=== PATIENT | female | born 1995 | race Caucasian/White ===

== ENCOUNTER 2022-02-05 00:35 | Day surgery (SDC) | payer BC, SELFPAY ==
[2022-02-03 15:14] VITALS: BMI 30.2
--- NOTE | 2022-02-03 15:20 | PC.NURSE ---
Report to the Outpatient Waiting Room, entrance under the green pavilion located off [facility], at time 1100 on date 02/05/22. OR Time: 1300. Time changes happen often and if your time is changed the preop area will call you the afternoon before. - You and your visitor will be asked to self-screen and do not enter if you have any COVID symptoms. - Only one visitor and NO children visitors are allowed at this time. - The patient visitor is requested to leave or wait in car when not with patient due to restrictions. - A mask is required within the hospital. Patients may have clear liquids (water, carbonated beverages, clear teas, apple juice) until 3 hours prior to surgery with a maximum of 20 ounces. - No food from midnight until time of surgery Take the following medications with a SIP of water the morning of surgery: N/A Medications to discontinue per physician: N/A Date to take last dose: N/A Please no make-up, nail amharic, hairspray, perfume, deodorant, or body powder the day of surgery. No jewelry (including any body piercings) or valuables the day of surgery, leave them at home. Please take a shower or bath the night before, or the morning of, surgery with an antibacterial soap. Wear comfortable, loose fitting clothing. - Jewelry must be removed prior to entering the operating room. Rings and piercings that are not removed may be cut off. - The hospital will not accept responsibility for valuables. - Please leave all valuables, including medications, at home the day of surgery. If you are going home after surgery, a licensed tractor trailer driver must drive you home. - NO public transportation without another adult. - We recommend that an adult stay with you for 24 hours following discharge. - We also recommend that you do not drive, make important decision, drink alcoholic beverages, or take any drugs that were not prescribed by your health care provider for at least 24 hours after your discharge time. Follow any additional instructions given to you from your surgeon. If you or anyone in your household have experienced Covid symptoms in the past week, please notify your surgeon or the nurse liaison at the phone number below for possible testing. Telephone instructions given to PT - FERMIN CUEVAS and asked if any additional questions and then verbalized understanding. Patient advised to call surgeon office or pre surgery nurse liaison [phone] if any additional questions.
--- NOTE | 2022-02-04 16:41 | PM.IMHP ---
H&P: HPI History of Present Illness Date/Time: 02/04/22 16:41 Chief Complaint: Miscarriage Narrative: 26 y/o G1 at 9 weeks 4 days gestation by LMP 11/30/21, giving a due date of 09/06/22. Ultrasound exam on 01/21 showed a joshi IUP with cardiac motion, measuring 5 days behind dates. Follow up ultrasound exam on 02/03 showed a joshi IUP with CRL 1.9 cm with no cardiac motion. She has had some cramping, but no vaginal bleeding. She would like surgical management of her problem. Review of Systems Review of Systems: All systems reviewed & are unremarkable except as noted in HPI and below PMFSH Surgical History Surgical History History of repair of ACL Social History Social History Smoking status: Never smoker Alcohol intake: current Alcohol use details: 2/WEEK WHEN NOT Substance use: never Substance use type: does not use Living arrangements: with family Spiritual care concerns: No Meds Home Medications and Allergies Home Medications Medication Instructions Recorded Confirmed Type No Home Medications 02/03/22 02/03/22 History Allergies Allergy/AdvReac Type Severity Reaction Status Date / Time No Known Allergies Allergy Mild Unverified 02/03/22 15:13 Exam Const: Orientation/consciousness: patient oriented x3 Other: Well-developed, well-nourished female in no acute distress. Neck: Thyroid: thyroid normal Lymphatic: no lymphadenopathy noted (in neck, axilla or inguinal nodes) Resp: Effort & Inspection: normal respiratory effort Auscultation: clear to auscultation bilaterally Cardio: Rate: regular rate Rhythm: regular rhythm Heart sounds: S1 normal heart sound present and S2 normal heart sound present GI: Other: ABD: Soft, nontender, nondistended. No guarding or rebound tenderness. No hepatosplenomegaly. : General: Yes no CVA tenderness Other: External genitalia: normal female hair distribution, without lesion. Urethral meatus: no lesion, non prolapsed. Bladder: no mass, nontender Vagina: well-estrogenized, without lesion or discharge. No cystocele or rectocele. Cervix: no lesion or discharge. Uterus: enlarged, 8-10 weeks gestational size, anteverted, freely mobile, nontender Adnexa: no mass or tenderness. Anus/perineum: no lesions, nontender Back/Spine/Pelvis: Back: no CVA tenderness Skin: General skin exam: normal color and no rashes or lesions noted Neuro: General: patient oriented x3 Extrem: Other: Extremities: nontender with no edema Psych: Mental Status: mental status grossly normal Affect: normal affect Assessment and Plan Assessment and plan (1) Missed : Code(s): O02.1 - Missed Status: Acute Assessment and Plan: A: Missed SAB. P: Offered expectant management vs. dilation and suction curettage. She prefers the latter. Reviewed risks, benefits, alternatives in detail. She understands risks of surgery to include risks of anesthesia, risks of pain, infection, bleeding, blood products, thromboembolic phenomena and damage to adjacent structures such as bowel, bladder, ureters, blood vessels and nerves. She understands all these risks and elects to proceed with dilation and suction curettage.
--- NOTE | 2022-02-05 07:49 | WPDANESEPPF ---
Anes - Initial Pre Proc Eval Procedure: Operation Date: 02/05/22 13:00 Proposed Procedures p Suction Dilation and Curettage - Helio Solis MD Date/Time: 02/05/22 07:49 Surgeon: Helio Solis MD Pre Op Diagnosis: Missed AB Patient Data Age: 26 Gender: F Height: 1.52 m Weight: 70.31 kg Allergies Allergy/AdvReac Type Severity Reaction Status Date / Time No Known Allergies Allergy Mild Verified 02/05/22 11:15 Home Medications Medication Instructions Recorded Confirmed Type No Home Medications 02/03/22 02/03/22 History Patient hx anesthesia problems: none Family hx anesthesia problems: none Results Review: All pre-operative results and documents have been reviewed as part of the pre-operative evaluation. [facility] Surgical History Surgical History History of repair of ACL Social History Social History Smoking status: Never smoker Alcohol intake: current Alcohol use details: 2/WEEK WHEN NOT Substance use: never Substance use type: does not use Living arrangements: with family Spiritual care concerns: No Anes - Eval Final PreProcedure Day of Procedure 02/05/22 07:49 Patient weight: obese Heart: regular rate and rhythm Lungs: clear to auscultation Airway: Mallampati scale class II Neurological: alert and oriented Last oral intake: >/= 8 hours ASA classification: II Emergent: no Anesthetic plan: proceed Anesthesia type and monitoring: general GIVS and standard monitoring Results Review: All pre-operative results and documents have been reviewed as part of the pre-operative evaluation. Informed Consent: The patient's anesthetic plan and its attendant risks and benefits were discussed with the patient/family/POA. Questions were solicited and answers provided to the satisfaction of the patient/family/POA.
[2022-02-05 11:10] VITALS: BP 113/71; PULSE 80; RESP 16; TEMP 37.2; O2SAT 100; BMI 30.7
[2022-02-05] MEDS: ACETAMINOPHEN 500 MG TABLET 1000 MG PO (11:20)
[2022-02-05] MEDS: LACTATED RINGERS 1,000 ML 30 ML IV CONT (11:50)
--- NOTE | 2022-02-05 12:22 | WPDHPUPDATE1 ---
History and Physical Update Update Date/Time: 02/05/22 12:22 History and Physical has been reviewed, including an updated exam of the patient. There are NO changes in the patient's condition. Risks, benefits, and alternatives have been discussed and questions answered. Patient agrees to proceed with procedure.
[2022-02-05] MEDS: KETOROLAC 30 MG/ML VIAL (*BKC) IV PUSH (12:53)
[2022-02-05] MEDS: LIDOCAINE HCL 1% PF 30 ML VIAL 10 ML INFILTRATE (12:55)
--- NOTE | 2022-02-05 13:02 | P.OP_ITS ---
Procedure Note - Detailed Date of Procedure 02/05/22 Pre-op Diagnosis Missed SAB Post-op Diagnosis Same Procedure Performed Dilation and suction curettage Surgeon Helio Solis MD Anesthesia MAC and Local (1% lidocaine paracervical block) Findings POC noted Description of Procedure The patient was taken to the operating room where she was prepared and draped in the usual sterile fashion in the dorsal lithotomy position. The bladder was drained with a red rubber catheter. A sterile speculum was placed into the vagina. The anterior lip of the cervix was grasped with a single-tooth tenaculum. Ten mL of 1% lidocaine was administered in a paracervical block. The cervix was gently dilated using Hegar dilators until an 8mm dilator could be passed. The 8mm curved tip suction curette was advanced. Suction curettage was performed and products of conception were aspirated. Sharp curettage was then performed until a good uterine cry was noted. A final pass with the suction curette was made. The tenaculum was removed. Hemostasis was excellent. Sp onge, lap, needle and instrument counts were correct. The patient was taken to the recovery room in stable condition. I was present and scrubbed for the entire procedure. Estimated Blood Loss 50 Drains No Packing No Pathology Yes (Endometrial curettings) Complications None Condition Stable Disposition PACU
[2022-02-05 13:06] VITALS: BP 118/74; PULSE 86; RESP 16; O2SAT 100
[2022-02-05 13:36] VITALS: BP 105/73; PULSE 71; RESP 16; O2SAT 100
[2022-02-05] MEDS: oxyCODONE HCL (*CRX) 5 MG TAB IR PO (13:50)
[2022-02-05 14:06] VITALS: BP 112/73; PULSE 61; RESP 16
== END 2022-02-05 14:10 | disposition home or self-care (01) ==
PROVIDERS: Visit Provider Obstetrics & Gynecology
PROC: (CPT 59820; principal; 2022-02-05 13:00)
DX: O02.1 Missed abortion (principal); Z3A.09 9 weeks gestation of pregnancy
CPT/HCPCS: 59820; 36415; 85461; 88305; A9270; J1885; J2250; J2590; J2704; J3010; J7120

== ENCOUNTER 2022-12-05 14:33 | Outpatient (RCR) | payer OTHER, SELFPAY ==
[2022-12-05 15:36] VITALS: BP 113/65
== END 2023-03-04 11:21 | disposition home or self-care (01) ==
LOC: ANHOBOP 14:33
PROVIDERS: Visit Provider Obstetrics & Gynecology
DX: O36.8130 Decreased fetal movements, third trimester, not applicable or unspecified (principal); Z3A.32 32 weeks gestation of pregnancy
CPT/HCPCS: 59025

== ENCOUNTER 2023-01-19 23:09 | Inpatient (IN) | payer OTHER, SELFPAY ==
[2023-01-19 23:34] VITALS: BMI 37.2
--- NOTE | 2023-01-19 23:35 | LDADM ---
This patient, Cynthia Clayton, was admitted to Labor/Delivery/Recovery 105 on 01/19/23 at 23:09. Plans for labor, pain management and were discussed with patient. Patient/family oriented to hospital policies and general routines including ID bracelet, bed and alarms, visiting hours, pain management, procedures, bathroom and other care routines, personal items, smoking policy, room service/diet and guest tray routines, infant security routines, and visiting hours. Patient/Family are encouraged to report perceived risks to care and to ask questions if they do not understand what they are told or what they should do. See OBIX for further documentation.
[2023-01-19 23:57] VITALS: TEMP 36.8
[2023-01-19 23:57] LABS: Basophils Percent Auto 0.3 % (0.2-1.2); Eosinophils Absolute Auto 0.2 K/mm3 (0-0.3); Eosinophils Percent Auto 1.1 % (0-4.4); Hematocrit 37.6 % (37.0-47.0); Hemoglobin 13.1 g/dL (12.0-15.0); Immature Granulocyte Absolute 0.15 K/mm3 (0.00-0.031); Mean Corpuscular HGB Conc 34.8 g/dl (32-36); Mean Corpuscular Hemoglobin 32.5 pg (26-34); Mean Corpuscular Volume 93.3 fl (80-100); Mean Platelet Volume 12.7 fl (7.4-10.4); Monocytes Percent Auto 6.8 % (2.6-8.5); Neutrophils Absolute Auto 10.5 K/mm3 (1.3-6.7); Neutrophils Percent Auto 72.8 % (45.5-73.1); Platelet Count Result 178 k/mm3 (150-375); Red Blood Count 4.03 M/mm3 (4.2-5.4); Red Cell Distribution Width 13.1 % (11.5-14.5); White Blood Count 14.5 K/mm3 (4.5-10.0)
[2023-01-19 23:58] VITALS: BP 127/74; PULSE 91
[2023-01-20] VITALS (190 sets, daily range): BP systolic 88–171; BP diastolic 57–146; PULSE 56–182; TEMP 35.9–37.1; O2SAT 90–100
[2023-01-20] MEDS: DINOPROSTONE 10 MG VAG INSERT VAGINAL (00:14)
--- NOTE | 2023-01-20 08:56 | WPDOBADMIT ---
Obstetrics - Admit Note Admission Note: record reviewed. Additions to the history and/or subsequent changes in the physical findings follow. 27 y/o at 39 3/7 weeks gestation here for scheduled induction of labor. EFW on US one week ago was 8#7oz, with FRANKLIN 30 cm. GBS neg. AVSS NST reactive TOCO: contractions irregularly ABD soft, nontender, gravid, vertex EXT nontender A: IUP at term with EFW 9#, here desiring induction of labor. P: Cervidil in place, will withdraw at 12 hours. Anticipate .
[2023-01-20 09:58] LABS: Rapid Plasma Reagin Non-Reactive (NonReactive)
--- NOTE | 2023-01-20 12:12 | PM.OBPNLAB ---
Pain Control Date/time seen: 01/20/23 12:12 Comments: Feeling some contractions. Pelvic Exam Dilation (cm): 2 Effacement (%): 50 station: -2 Comments: Cervidil removed. AROM with clear fluid. Contractions Contraction pattern: Irregular Status status: Category l Assessment and Plan Comments: Cervidil removed. Begin oxytocin.
[2023-01-20] MEDS: LACTATED RINGERS 1,000 ML 125 ML IV CONT (12:40)
[2023-01-20] MEDS: OXYTOCIN 30 UNITS/NS 500 ML 30 UNITS/500 ML BAG 6 UNITS IV CONT (12:41)
[2023-01-20] MEDS: LACTATED RINGERS 1,000 ML 999 ML IV CONT ×2 (14:42→20:13)
--- NOTE | 2023-01-20 17:27 | PM.OBPNLAB ---
Pain Control Date/time seen: 01/20/23 17:27 Comments: Comfortable with epidural. Pelvic Exam Dilation (cm): 4 Effacement (%): 80 station: -2 Comments: IUPC placed Contractions Contraction frequency: 3 Contraction pattern: Irregular Status status: Category l Assessment and Plan Comments: Continue oxytocin.
[2023-01-20] MEDS: CALCIUM CARBONATE (TUMS) 500 MG (200 MG ELEMENTAL) (19:13)
[2023-01-20] MEDS: ONDANSETRON INJ 4 MG/2 ML VIAL IV PUSH (23:19)
[2023-01-21] VITALS (261 sets, daily range): BP systolic 74–194; BP diastolic 42–169; PULSE 83–184; RESP 15–18; TEMP 36.6–37.2; O2SAT 82–100
[2023-01-21] MEDS: AMPICILLIN 2 GM/NS 100 ML 2 GM/100 ML BAG IVPB (06:01)
[2023-01-21] MEDS: LACTATED RINGERS 1,000 ML 125 ML IV CONT ×2 (08:16→13:54)
--- NOTE | 2023-01-21 08:56 | PM.OBPNLAB ---
Pain Control Date/time seen: 01/21/23 08:56 Comments: Comfortable with epidural. Pelvic Exam Dilation (cm): 8 Effacement (%): 100 station: 0 Contractions Contraction frequency: 4 Contraction pattern: Irregular Status status: Category l Assessment and Plan Comments: Continue augmentation of labor.
[2023-01-21] MEDS: AMPICILLIN 1 GM/NS 50 ML 1 GM/50 ML BAG IVPB ×2 (10:26→13:53)
--- NOTE | 2023-01-21 12:54 | PM.OBPNLAB ---
Pain Control Date/time seen: 01/21/23 12:54 Comments: Still comfortable with epidural. Pelvic Exam Dilation (cm): 8 Effacement (%): 100 station: 0 Contractions Contraction frequency: 3 Contraction pattern: Regular Status status: Category l Assessment and Plan Comments: A: Arrest of dilation despite adequate contractions. P: Offered primary . She understands risks of surgery to include risks of anesthesia, risks of pain, infection, bleeding, blood products, thromboembolic phenomena and damage to adjacent structures such as bowel, bladder, ureters, blood vessels and nerves. She understands all these risks and elects to proceed with surgery.
[2023-01-21] MEDS: AZITHROMYCIN 500 MG/NS 250 ML 500 MG/250 ML BAG 250 MG IVPB (13:43)
[2023-01-21] MEDS: ceFAZolin 2 GM/D5W 50 ML 2 GM/50 ML BAG IVPB (14:46)
--- NOTE | 2023-01-21 15:39 | P.PCNOB_ITS ---
OB - Delivery Note Procedure Delivery date: 01/21/23 Procedure: Procedures Operation Date: 01/21/23 15:00 <No data on this case meets the specified criteria> Primary low transverse delivery Intrapartal Events: Arrest of Dilation Induction method: Per Pitocin Protocol Delivery augmentation: Rupture of Membranes and Pitocin Delivery monitor: External FHT, External Uterine and Internal Uterine Route of delivery: Specimen: Yes (cord blood) Quantitative Blood Loss (ml): 1,230 Anesthesia type: Epidural Disposition: PACU Complications: None Narrative: The patient was taken to the operating room where she was prepared and draped in the usual sterile fashion in dorsal supine position with a leftward tilt. She received cefazolin and azithromycin preoperatively. Epidural anesthesia was found to be adequate. A Pfannenstiel skin incision was made and carried through to the underlying layer of the fascia. The fascia was incised in the midline and the incision was extended laterally. The fascia was dissected free of the underlying rectus muscles. The rectus muscles were in the midline. The peritoneum was identified, tented up and entered sharply. The peritoneal incision was extended superiorly and inferiorly with good visualization of the bladder. The bladder blade was placed. The vesicouterine peritoneum was identified, tented up and entered sharply. The incision was extended laterally and the bladder flap was developed. The bladder blade was replaced. The uterus was then incised sharply in a transverse fashion along the lower uterine segment. The incision was extended laterally. The infant's head was delivered atraumatically to the sterile field, followed by the body. The nose and mouth were bulb suctioned. After a delay, the cord was clamped and cut. The infant was handed off the field. Cord blood was collected. The placenta was removed manually and was passed off the field. The uterus was exteriorized and cleared of all clots and debris. The uterine incision was reapproximated using 0 Monocryl in a running, locked fashion. A second, imbricating layer of the same suture was run. Excellent hemostasis resulted as did excellent reapproximation of the normal anatomy. The uterus was returned the abdomen. The pelvis was irrigated copiously with warmed normal saline. Rigorous hemostasis was assured. The fascial layer was reapproximated using 0 Vicryl in a running fashion. The skin was closed with a running, subcuticular stitch of 4 0 Vicryl. Dermaflex was applied externally. Sponge, lap, needle and instrument counts were correct. The patient was taken to the recovery room in stable condition. The infant went to the nursery in stable condition. I was present and scrubbed the entire procedure. [employer] Baby Date of : 01/21/23 Time of : 15:05 Weeks of gestation at delivery: 39 Infant gender: Male Weight (pounds): 8 Weight (ounces): 6 presentation: vertex Placenta delivery description: Manual Removal and Normal Configuration Cord Vessel Description: 3 Vessels and Delayed Cord Clamping score one minute: 9 score five minutes: 9
[2023-01-21] MEDS: OXYTOCIN 30 UNITS/NS 500 ML 30 UNITS/500 ML BAG 125 UNITS IV CONT (17:00)
--- NOTE | 2023-01-21 18:25 | OBPPTRN ---
Patient transferred to post room #290 via stretcher. Support person present. Oriented to unit, room, information board, rooming in, admission packet and security measures. Patient verbalizes understanding.
[2023-01-21] MEDS: DEXTROSE 5%/0.45% SOD CHL 1,000 ML 125 ML IV CONT (21:51)
[2023-01-22 04:10] VITALS: BP 121/68; PULSE 101; RESP 16; TEMP 36.5; O2SAT 98
[2023-01-22] MEDS: KETOROLAC 30 MG/ML VIAL (*BKC) IV PUSH (05:22)
[2023-01-22 05:29] LABS: Hematocrit 25.8 % (37.0-47.0); Hemoglobin 8.6 g/dL (12.0-15.0); Mean Corpuscular HGB Conc 33.3 g/dl (32-36); Mean Corpuscular Hemoglobin 31.9 pg (26-34); Mean Corpuscular Volume 95.6 fl (80-100); Platelet Count Result 132 k/mm3 (150-375); Red Cell Distribution Width 13.4 % (11.5-14.5)
[2023-01-22 05:55] LABS: Band Neutrophils Percent 5 % (0-6); Eosinophils Absolute Manual 0.21 K/mm3 (0.02-0.5); Eosinophils Percent Manual 1 % (0-4); Lymphocytes Absolute Manual 1.68 K/mm3 (1.1-4.5); Monocytes Absolute Manual 0.42 K/mm3 (0.1-0.90); Monocytes Percent Manual 2 % (3-9); Neutrophils Absolute Manual 18.69 K/mm3 (1.7-7.2); Neutrophils Percent Manual 84 % (46-73); Total Cells Counted 100
[2023-01-22 05:56] LABS: Acanthocytes 1+ (NORMAL); Anisocytosis 1+ (NORMAL); Schistocytes None Seen (NORMAL)
[2023-01-22 09:30] VITALS: BP 107/65; PULSE 93; RESP 18; TEMP 36.6; O2SAT 98
[2023-01-22] MEDS: MULTIVIT/MIN/PREN/FOL AC/IRON TABLET 1 TAB PO (09:37)
[2023-01-22] MEDS: SIMETHICONE 80 MG TAB.CHEW PO ×2 (09:37→17:40)
[2023-01-22] MEDS: POLYSACCHARIDE IRON COMPLEX 150 MG CAPSULE PO ×2 (09:37→17:40)
[2023-01-22] MEDS: DOCUSATE SODIUM 100 MG CAPSULE PO ×2 (09:37→17:40)
--- NOTE | 2023-01-22 10:18 | WPDANLDPN2 ---
Anes-Prog Note L&D Date/Time: 01/22/23 10:18 Comfortable throughout: section Neuraxial method: epidural Epidural/Spinal procedure site: clean & non-tender Neuro status: Neuro function grossly intact. Cardiovascular status: normal Respiratory status: normal Airway patency: baseline Mental status: baseline Post-Op hydration status: normal Vital Signs: Last Vital Signs Temp 36.5 C 01/22/23 04:10 Pulse 101 H 01/22/23 04:10 Resp 16 01/22/23 04:10 BP 121/68 01/22/23 04:10 Pulse Ox 98 01/22/23 04:10 O2 Del Method Room Air 01/21/23 23:10 Pain score (VAS): 3/10 I/O: Intake & Output 01/21/23 01/22/23 01/22/23 23:59 07:59 15:59 Intake Total 100 1700 Output Total 1050 1700 Balance -950 0 Post-procedural complaints: none Patient feedback: Patient satisfied with anesthetic care.
--- NOTE | 2023-01-22 10:19 | WPDANLDNPN2 ---
Anes-Prog Note L&D-Neuraxial Date/Time: 01/22/23 10:19 Neuraxial medications: epidural PF morphine Opiod-related complaints: none Patient feedback: Patient satisfied with post-operative pain management.
[2023-01-22 12:36] VITALS: BP 112/69; PULSE 90; RESP 16; TEMP 36.9; O2SAT 97
[2023-01-22] MEDS: HYDROcodone/acetaminophen (*CRX) 5-325 MG TABLET 1 TAB PO ×3 (13:36→20:50)
[2023-01-22] MEDS: IBUPROFEN 600 MG TABLET PO (13:37)
--- NOTE | 2023-01-22 13:53 | PC.NURSE ---
1030 Introductions were made, then consulted with patient to assess needs related to . Mother led the conversation with her?plans to feed?her and the?experience so far. Mother works well with her with encouragement and education. Encouraged understanding of the benefits of skin to skin (demonstrating unwrapping and placing upright on her chest), stimulating with massage touch, changing positions to encourage wakefulness, how to watch for early feeding cues, responsive feeding, feeding on demand (aiming for 8-12 times in 24 hours, about every 2-3 hours), milk production, building/maintaining a milk supply, duration of feeding, signs of adequate intake/output and how to record on the feeding sheet. Reviewed positioning and ear, shoulder, hip alignment, supporting the breast to facilitate a deep latch, asymmetrical latch (off-center), leading with the chin with a big, open, wide gape and body close to mother. Infant latched optimally to both breast in [football/cross cradle/laid-back] position. Education given to mother of how to visualize suck/swallow ratios and listen for drinking at the breasts. Infant was able to maintain latch without discomfort to mother. Nipple care reviewed with optimal latch and good positioning. Reminding mother of comfort measures of healing with a warm and wet washcloth to rinse breast, then leave open to air-dry as needed. Reviewed good handwashing when or touching the breast/nipples to prevent infection. Resources used to facilitate learning were used with the mom and baby guide. Mother voiced understanding of skin to skin, stimulating with massage touch, responsive feedings, hand expressed colostrum, talking to infant to encourage if it has been 2 -2.5 hours since the start of the last , to call if does not latch, or if there is discomfort with . Resources provided for inpatient/outpatient with business card, feeding sheet and the mom/baby guide. Parents voiced understanding of information, demonstrated learning and will call if there is a request for assistance. Reported to primary RN.
--- NOTE | 2023-01-22 17:02 | PC.NURSE ---
1600 Mother witnessed feeding baby and she is able to independently latch with appropriate positioning/alignment. She denies any nipple discomfort and is responsively . Infant is currently meeting outcomes for weight, output, jaundice and feeding frequencies of 8-12 times in 24 hours. Mother declines any additional assistance/education at this time. Mother is encouraged to call for assistance if her infant doesn?t latch or there is discomfort with latching. Mother voiced understanding of information shared and the mom reminded of the mom/baby guide for an additional resource. Reported to the primary RN.
[2023-01-22 18:46] VITALS: BP 121/84; PULSE 85; RESP 18; TEMP 36.8; O2SAT 99
[2023-01-23] MEDS: HYDROcodone/acetaminophen (*CRX) 5-325 MG TABLET 1 TAB PO ×3 (00:45→14:53)
[2023-01-23] MEDS: IBUPROFEN 600 MG TABLET PO ×4 (05:08→23:58)
[2023-01-23 08:30] VITALS: BP 125/77; PULSE 85; RESP 18; TEMP 36.7; O2SAT 98
[2023-01-23] MEDS: SIMETHICONE 80 MG TAB.CHEW PO (10:53)
[2023-01-23] MEDS: POLYSACCHARIDE IRON COMPLEX 150 MG CAPSULE PO ×2 (10:53→17:50)
[2023-01-23] MEDS: DOCUSATE SODIUM 100 MG CAPSULE PO ×2 (10:54→17:50)
[2023-01-23] MEDS: MULTIVIT/MIN/PREN/FOL AC/IRON TABLET 1 TAB PO (10:54)
--- NOTE | 2023-01-23 12:55 | PM.OBPNVD ---
OB - PN: Subj Subjective Date/time seen: 01/22/23 190 Narrative: Pain OK. Tolerating diet. OB - PN: Obj Data Labs 01/22/23 04:21 OB - PN A/P Plan Comments: A: POD#1, doing well. P: Would like circumcision for son -- reviewed. Routine care. Exam Narrative: AVSS I/O OK ABD soft, nontender, fundus firm. Incision c/d/i. EXT nontender
--- NOTE | 2023-01-23 12:56 | PM.OBPNVD ---
OB - PN: Subj Subjective Date/time seen: 01/23/23 12:56 Narrative: Pain OK. Tolerating diet. OB - PN: Obj Data Labs 01/22/23 04:21 OB - PN A/P Plan Comments: A: POD#2, doing well. P: Routine care. Plan home tomorrow. Exam Narrative: AVSS I/O OK ABD soft, nontender, fundus firm. Incision c/d/i. EXT nontender
--- NOTE | 2023-01-23 13:00 | PM.OBDSVD ---
DS: Admitting Diagnosis Discharge Date 01/24/23 Admitting Diagnosis IUP at 39 4/7 weeks DS: Discharge Diagnosis Discharge Diagnosis (1) Term delivered: Code(s): O80 - Encounter for full-term uncomplicated delivery Status: Acute OB - DS: Summary OB Procedures : None OB Procedures Intrapartum: OB Procedures: : None Peripartum Data Procedures: Procedures Operation Date: 01/21/23 15:00 Actual Procedure Side Surgeon p Section Not Applicable Helio Solis MD Time Spent with Patient Time attestation: Total time spent providing and/or coordinating discharge services: Discharge Plan Discharge Attending physician on discharge: Helio Solis Discharging Clinician: Helio Solis Patient Disposition: Home, Self-Care Activity: may shower, may drive after 2 weeks and pelvic rest Diet: regular Wound Care Instructions: incision open to air Discharge Instructions: Call or return if temperature above 100.4? F, increased abdominal pain, increased vaginal bleeding or any new problems. Stand Alone Forms: General Discharge Information Follow-up/Referrals: Helio Solis MD [Physician] - 4 Weeks Discharge Medications: New ibuprofen 600 mg tablet 600 mg PO Q6H PRN (Reason: cramps) Qty: 30 0RF ferrous sulfate 325 mg (65 mg iron) tablet 325 mg PO DAILY Qty: 30 0RF hydrocodone-acetaminophen 5-325 mg tablet 1 - 2 tablet PO Q6H PRN (Reason: pain) Qty: 30 0RF Continued #2 Tablet 1 tablet PO DAILY Date of admission: 01/19/23 23:09 Primary Care Provider: Raheem Benavides Admitting Provider: Helio Solis Attending physician on admission: Helio Solis Condition: Stable
[2023-01-23 20:45] VITALS: BP 107/63; PULSE 88; RESP 18; TEMP 36.5
--- NOTE | 2023-01-24 05:41 | PC.NURSE ---
Patient viewed the discharge video Mother & Baby Care, The First Two Weeks . Patient was given the opportunity and encouraged to ask questions. Patient verbalized understanding of information shared and has been given the mother/baby guide for home reference.
[2023-01-24 07:45] VITALS: BP 106/71; PULSE 87; RESP 16; TEMP 36.8; O2SAT 100
[2023-01-24] MEDS: MULTIVIT/MIN/PREN/FOL AC/IRON TABLET 1 TAB PO (08:17)
[2023-01-24] MEDS: POLYSACCHARIDE IRON COMPLEX 150 MG CAPSULE PO (08:17)
[2023-01-24] MEDS: DOCUSATE SODIUM 100 MG CAPSULE PO (08:17)
[2023-01-24] MEDS: IBUPROFEN 600 MG TABLET PO (08:17)
[2023-01-24] MEDS: HYDROcodone/acetaminophen (*CRX) 5-325 MG TABLET 1 TAB PO (08:18)
[2023-01-24] MEDS: MEASLES,MUMPS,RUBELLA VACCINE 0.5 ML VIAL SUB-Q (08:18)
--- NOTE | 2023-01-24 10:23 | PM.OBPNVD ---
OB - PN: Subj Subjective Date/time seen: 01/24/23 10:23 Narrative: Pain OK. Tolerating diet. Would like to go home. OB - PN: Obj Data Labs 01/22/23 04:21 OB - PN A/P Plan day: 3 Comments: A: POD#3, doing well. P: Home to f/u 4 weeks. Exam Narrative: AVSS ABD soft, nontender, fundus firm. Incision c/d/i. EXT nontender
[2023-01-26 12:45] VITALS: BP 124/72; PULSE 78; RESP 14; TEMP 36.8
== END 2023-01-24 13:08 | disposition home or self-care (01) | DRG 788 ==
LOC: ANHLDR 01-21 15:09 → ANHOB2 01-21 18:29
PROVIDERS: Admitting Provider Obstetrics & Gynecology; PCP Family Medicine; Visit Provider Obstetrics & Gynecology
PROC: 10D00Z1 Extraction of Products of Conception, Low, Open Approach (ICD-10-PCS; CPT 59514; principal; 2023-01-21 15:00)
DX: O62.0 Primary inadequate contractions (principal); O42.92 Full-term premature rupture of membranes, unspecified as to length of time between rupture and onset of labor; Z3A.39 39 weeks gestation of pregnancy; Z37.0 Single live birth
CPT/HCPCS: 36415; 85025; 86592; 86850; 86900; 86901; 90710; A9270; J0290; J0456; J0690; J1885; J2274; J2405; J2590; J2795; J3010; J7120

== ENCOUNTER 2024-07-18 11:24 | Observation (INO) | payer OTHER, SELFPAY ==
--- NOTE | 2024-07-18 11:24 | OBADM ---
This patient, Cynthia Aldana, admitted to the OB room OB Post 117 for observation. Patient/family oriented to hospital policies and general routines including ID bracelet, bed and alarms, visiting hours, pain management, procedures, bathroom and other care routines, personal items, smoking policy, room service/diet, and visiting hours. Patient/Family are encouraged to report perceived risks to care and to ask questions if they do not understand what they are told or what they should do.
[2024-07-18 11:30] VITALS: BMI 33.3
[2024-07-18 12:01] VITALS: BP 120/66; PULSE 104
[2024-07-18 12:10] LABS: Add Urine Microscopic? YES; Appearance Urine Clear (Clear); Bacteria Urine None Seen /hpf; Bilirubin Urine Negative (Negative); Blood Urine Negative (Negative); Color Urine Yellow (Yellow); Glucose Urine UA Negative (Negative); Ketones Urine Negative (Negative); Leukocyte Esterase Ur Trace LEU/UL (Negative); Nitrate Urine Negative (Negative); Non Pathogenic Casts 0-2; Protein Urine Negative (Negative); RBC Urine 0-2 /hpf (0-2); Specific Grav Ur 1.008 (1.001-1.035); Squamous Epithelial Cell Urine Moderate /hpf (Few); Urobilinogen Urine 0.2 mg/dL (<2.0); WBC Urine 0-5 /hpf (0-3); pH Urine 6.5 (5.0-9.0)
[2024-07-18] MEDS: TERBUTALINE SULFATE 1 MG/ML VIAL 0.25 MG SUB-Q ×2 (12:55→15:09)
[2024-07-18 15:21] LABS: Fetal Fibronectin Negative
--- NOTE | 2024-07-21 08:51 | PM.OBTRLD ---
OB - Triage/Final Diagnosis Visit Information Comments/Additional reasons for admission: I have assessed the risk for this patient, Cynthia Aldana, and determined that she would benefit from observation care. Evaluation Laboratory results: Laboratory Tests 07/18/24 07/18/24 11:48 14:39 Urine Color Yellow Urine Appearance Clear Urine pH 6.5 Ur Specific [place] 1.008 Urine Protein Negative Urine Glucose (UA) Negative Urine Ketones Negative Ur Blood (Man) Negative Urine Nitrate Negative Urine Bilirubin Negative Urine Urobilinogen 0.2 Ur Leukocyte Esterase Trace H Urine RBC 0-2 Urine WBC 0-5 Ur Squamous Epith Cells Moderate Urine Bacteria None seen Urine Casts 0-2 Fibronectin Negative Final Diagnosis (1) contractions: Code(s): O47.00 - False labor before 37 completed weeks of gestation, unspecified trimester Status: Acute
== END 2024-07-18 16:35 | disposition home or self-care (01) ==
PROVIDERS: Admitting Provider Obstetrics & Gynecology; PCP Family Medicine; Visit Provider Obstetrics & Gynecology
DX: O47.03 False labor before 37 completed weeks of gestation, third trimester (principal); Z3A.31 31 weeks gestation of pregnancy
CPT/HCPCS: 81001; 82731; 87086; 96372; G0378; G0379; J3105

== ENCOUNTER 2024-09-13 09:54 | Outpatient (CLI) | payer OTHER, SELFPAY ==
[2024-09-13 10:11] LABS: Hematocrit 37.8 % (37.0-47.0); Hemoglobin 12.5 g/dL (12.0-15.0); Mean Corpuscular HGB Conc 33.1 g/dl (32-36); Mean Corpuscular Volume 96.7 fl (80-100); Mean Platelet Volume 12.3 fl (7.4-10.4); Platelet Count Result 163 k/mm3 (150-375); Red Blood Count 3.91 M/mm3 (4.2-5.4); Red Cell Distribution Width 13.7 % (11.5-14.5); White Blood Count 12.6 K/mm3 (4.5-10.0)
[2024-09-13 15:18] LABS: Syphilis IgG/IgM Antibody Negative (Negative)
== END 2024-09-13 09:55 | disposition home or self-care (01) ==
LOC: ANHLAB 09:56
PROVIDERS: PCP Family Medicine; Visit Provider Obstetrics & Gynecology
DX: Z34.93 Encounter for supervision of normal pregnancy, unspecified, third trimester (principal); Z3A.00 Weeks of gestation of pregnancy not specified
CPT/HCPCS: 36415; 85027; 86593; 86850; 86900; 86901

== ENCOUNTER 2024-09-14 09:59 | Inpatient (IN) | payer OTHER, SELFPAY ==
[2024-09-14] VITALS (45 sets, daily range): BP systolic 93–141; BP diastolic 50–96; PULSE 68–102; RESP 12–18; TEMP 36.5–36.8; O2SAT 97–100; BMI 34.3
[2024-09-14] MEDS: ACETAMINOPHEN 500 MG TABLET 1000 MG PO (10:54)
[2024-09-14] MEDS: LACTATED RINGERS 1,000 ML 125 ML IV CONT ×2 (10:58→11:59)
[2024-09-14 11:37] LABS: HIV 1/2 Ab P24 Ag Result Negative (Negative)
--- NOTE | 2024-09-14 11:45 | PM.IMHP ---
H&P: HPI History of Present Illness Date/Time: 09/14/24 11:45 Chief Complaint: Here for repeat c section Narrative: 29 y/o at 39 4/7 weeks with prior , here for repeat. Review of Systems Review of Systems: All systems reviewed & are unremarkable except as noted in HPI and below PMFSH Past Medical History Medical History Anxiety Depression Surgical History Surgical History History of delivery History of repair of ACL Family History Family History Other Patient denies significant medical history Social History Social History Smoking status: Never smoker Alcohol intake: current Alcohol use details: 2/WEEK WHEN NOT Substance use: never Substance use type: does not use Lack of Transportation: No Lack of Food: Never True Current Housing: I Have Housing Concerned About Future Housing: No Difficulty Paying Gas/Electric Bills: No Difficulty Paying for Meds: No Currently Unemployed: No Education: Bachelor's Degree Difficulty w/ Childcare or Family Care: No Living arrangements: with family Spiritual care concerns: No Meds Home Medications and Allergies Home Medications ?Medication ?Instructions ?Recorded ?Confirmed ?Type prenat.vits,rome,eqt-[id number] 1 tablet PO DAILY 12/26/22 08/19/24 History sertraline 100 mg tablet 100 mg PO Q24H 08/19/24 08/19/24 History Allergies Allergy/AdvReac Type Severity Reaction Status Date / Time diphenhydramine (From Allergy Hives Verified 08/19/24 13:01 Benadryl) Exam Const: Orientation/consciousness: patient oriented x3 Other: Well-developed, well-nourished female in no acute distress. Neck: Thyroid: thyroid normal Lymphatic: no lymphadenopathy noted (in neck, axilla or inguinal nodes) Resp: Effort & Inspection: normal respiratory effort Auscultation: clear to auscultation bilaterally Cardio: Rate: regular rate Rhythm: regular rhythm Heart sounds: S1 normal heart sound present and S2 normal heart sound present GI: Other: ABD: Soft, nontender, nondistended, gravid. FHR auscultated. FH 37 cm. No guarding or rebound tenderness. No hepatosplenomegaly. : General: Yes no CVA tenderness Other: Cervix closed, thick Back/Spine/Pelvis: Back: no CVA tenderness Skin: General skin exam: normal color and no rashes or lesions noted Neuro: General: patient oriented x3 Extrem: Other: Extremities: nontender with no edema Psych: Mental Status: mental status grossly normal Affect: normal affect Assessment and Plan Assessment and plan (1) Term : Code(s): Z34.90 - Encounter for supervision of normal , unspecified, unspecified trimester Status: Acute Assessment and Plan: A: IUP at 39 4/7 weeks with prior , desiring repeat. P: Offered repeat . She understands risks of surgery to include risks of anesthesia, risks of pain, infection, bleeding, blood products, thromboembolic phenomena and damage to adjacent structures such as bowel, bladder, ureters, blood vessels and nerves. She understands all these risks and elects to proceed with surgery. (2) History of delivery, currently : Code(s): O34.219 - Maternal care for unspecified type scar from previous delivery Status: Acute
--- NOTE | 2024-09-14 11:47 | P.PNAN_ITS ---
Anes - Initial Pre Proc Eval Procedure: Operation Date: 09/14/24 12:00 Proposed Procedures p Section - Helio Solis MD Date/Time: 09/14/24 11:47 Surgeon: Helio Solis MD Pre Op Diagnosis: C/S Patient Data Age: 29 Gender: F Height: 1.55 m Weight: 82.5 kg Allergies Allergy/AdvReac Type Severity Reaction Status Date / Time diphenhydramine (From Allergy Hives Verified 08/19/24 13:01 Benadryl) Home Medications ?Medication ?Instructions ?Recorded ?Confirmed ?Type prenat.vits,rome,qgj-kxcp-qpnrd 1 tablet PO DAILY 12/26/22 08/19/24 History sertraline 100 mg tablet 100 mg PO Q24H 08/19/24 08/19/24 History Laboratory Tests 09/14/24 10:40 HIV 1&2 Ab/P24 Ag 4thGn Negative (Negative) Patient hx anesthesia problems: none Family hx anesthesia problems: none Results Review: All pre-operative results and documents have been reviewed as part of the pre- operative evaluation. [facility] Past Medical History Medical History Anxiety Depression Surgical History Surgical History History of delivery History of repair of ACL Family History Family History Other Patient denies significant medical history Social History Social History Smoking status: Never smoker Alcohol intake: current Alcohol use details: 2/WEEK WHEN NOT Substance use: never Substance use type: does not use Lack of Transportation: No Lack of Food: Never True Current Housing: I Have Housing Concerned About Future Housing: No Difficulty Paying Gas/Electric Bills: No Difficulty Paying for Meds: No Currently Unemployed: No Education: Bachelor's Degree Difficulty w/ Childcare or Family Care: No Living arrangements: with family Spiritual care concerns: No Anes - Eval Final PreProcedure Day of Procedure 09/14/24 11:47 Patient weight: obese Heart: regular rate and rhythm Lungs: clear to auscultation and normal air movement Airway: Mallampati scale class II Neurological: alert and oriented Last oral intake: >/= 8 hours ASA classification: II Emergent: no Anesthetic plan: proceed Anesthesia type and monitoring: regional spinal and standard monitoring Results Review: All pre-operative results and documents have been reviewed as part of the pre- operative evaluation. Informed Consent: The patient's anesthetic plan and its attendant risks and benefits were discussed with the patient/family/POA. Questions were solicited and answers provided to the satisfaction of the patient/family/POA.
[2024-09-14] MEDS: FAMOTIDINE 20 MG/2 ML VIAL IV PUSH (12:00)
[2024-09-14] MEDS: ONDANSETRON INJ 4 MG/2 ML VIAL IV PUSH (12:00)
--- NOTE | 2024-09-14 12:01 | WPDHPUPDATE1 ---
History and Physical Update Update Date/Time: 09/14/24 12:01 History and Physical has been reviewed, including an updated exam of the patient. There are NO changes in the patient's condition. Risks, benefits, and alternatives have been discussed and questions answered. Patient agrees to proceed with procedure.
[2024-09-14] MEDS: ceFAZolin 2 GM/D5W 50 ML 2 GM/50 ML BAG IVPB (12:08)
--- NOTE | 2024-09-14 12:56 | W.PM.OBCSD ---
OB - Delivery Note Procedure Delivery date: 09/14/24 Pre-op diagnosis: Previous Delivery Post-op Diagnosis: Same Induction method: None Delivery monitor: External FHT and External Uterine Procedure Performed: Repeat Surgeon: Helio Solis MD Anesthesia type: Spinal Description of Procedure/Findings: Findings: Normal-appearing uterus, tubes and ovaries. Techniques: The patient was taken to the operating room where she was prepared and draped in the usual sterile fashion in dorsal supine position with a leftward tilt. She received cefazolin preoperatively. Spinal anesthesia was found to be adequate. A Pfannenstiel skin incision was made along the previous scar line and was carried through to the underlying layer of the fascia. The fascia was incised in the midline and the incision was extended laterally. The fascia was dissected free of the underlying rectus muscles. The rectus muscles were in the midline. The peritoneum was identified, tented up and entered sharply. The peritoneal incision was extended superiorly and inferiorly with good visualization of the bladder. The bladder blade was placed. The vesicouterine peritoneum was identified, tented up and entered sharply. The incision was extended laterally and the bladder flap was developed. The bladder blade was replaced. The uterus was then incised sharply in a transverse fashion along the lower uterine segment. The incision was extended laterally. The 's head was delivered atraumatically to the sterile field, followed by the body. The nose and mouth were bulb suctioned. After a delay, the cord was clamped and cut. The was handed off the field. Cord blood was collected. The placenta was removed manually and was passed off the field. The uterus was exteriorized and cleared of all clots and debris. The uterine incision was reapproximated using 0 Monocryl in a running, locked fashion. Excellent hemostasis resulted as did excellent reapproximation of the normal anatomy. The uterus was returned the abdomen. The pelvis was irrigated copiously with warmed normal saline. Rigorous hemostasis was assured. The fascial layer was reapproximated using 0 Vicryl in a running fashion. The skin was closed with a running, subcuticular stitch of 4 0 Vicryl. Dermaflex was applied externally. Sponge, lap, needle and instrument counts were correct. The patient was taken to the recovery room in stable condition. The infant went to the nursery in stable condition. I was present and scrubbed the entire procedure. Specimen: Yes (cord blood) Estimated Blood Loss: 470 Drains: Yes (dinero) Packing: No Pathology: Yes (cord blood) Complications: None Condition: Stable Disposition: PACU [place] Baby Date of : 09/14/24 Time of : 12:33 Gestational Age by Date: 39 gender: Female Weight (pounds): 8 Weight (ounces): 3 presentation: vertex Placenta delivery description: Manual Removal and Normal Configuration Cord Vessel Description: 3 Vessels and Delayed Cord Clamping score one minute: 8 score five minutes: 8
--- NOTE | 2024-09-14 12:59 | P.DS_ITS ---
DS: Admitting Diagnosis Discharge Date 09/15/24 Admitting Diagnosis IUP at 39 4/7 weeks Prior , desires repeat DS: Discharge Diagnosis Discharge Diagnosis (1) delivery delivered: Code(s): O82 - Encounter for delivery without indication Status: Acute OB - DS: Summary OB Procedures : None OB Procedures Intrapartum: OB Procedures: : None Peripartum Data Infant Delivery Method: Section Procedures: Procedures Operation Date: 09/14/24 12:00 <No data on this case meets the specified criteria> Time Spent with Patient Time attestation: Total time spent providing and/or coordinating discharge services: DS: Data Data Completed and Pending Labs on day of discharge: Labs from last 24 hours 09/14/24 10:40 HIV 1&2 Ab/P24 Ag 4thGn Negative Discharge Plan Discharge Attending physician on discharge: Helio Solis Discharging Clinician: Helio Solis Patient Disposition: Home Activity: may shower, may drive after 2 weeks and pelvic rest Diet: regular Wound Care Instructions: incision open to air Discharge Instructions: Call or return if temperature above 100.4? F, increased abdominal pain, increased vaginal bleeding or any new problems. Patient Language: Macedonian Stand Alone Forms: General Discharge Information Follow-up/Referrals: Helio Solis MD [Physician] - 4 Weeks Discharge Medications: New ibuprofen 600 mg tablet 600 mg PO Q6H PRN (Reason: cramps) Qty: 30 0RF hydrocodone-acetaminophen 5-325 mg tablet 1 - 2 tablet PO Q6H PRN (Reason: pain) Qty: 30 0RF Continued sertraline 100 mg tablet 100 mg PO Q24H prenat.vits,rome,qay-ujks-hrknk Tablet 1 tablet PO DAILY Date of admission: 09/14/24 09:59 Primary Care Provider: Nolvia,Raheem Admitting Provider: Helio Solis Attending physician on admission: Helio Solis Condition: Stable
[2024-09-14] MEDS: MORPHINE SULFATE INJ (*CRX) 10 MG/ML AMP 2.5 MG IV PUSH ×2 (14:24→14:35)
[2024-09-14] MEDS: OXYTOCIN 30 UNITS/NS 500 ML 30 UNITS/500 ML BAG 125 UNITS IV CONT (14:25)
--- NOTE | 2024-09-14 16:17 | OBPPTRN ---
282-Patient transferred to post room #282 via stretcher. Support person present. Oriented to unit, room, information board, rooming in, admission packet and security measures. Patient verbalizes understanding.
--- NOTE | 2024-09-14 16:29 | LDADM ---
This patient, Cynthia Aldana, was admitted to OB 2nd Floor Room 282 on 09/14/24 at 09:59. Plans for labor, pain management and were discussed with patient. Patient/family oriented to hospital policies and general routines including ID bracelet, bed and alarms, visiting hours, pain management, procedures, bathroom and other care routines, personal items, smoking policy, room service/diet and guest tray routines, infant security routines, and visiting hours. Patient/Family are encouraged to report perceived risks to care and to ask questions if they do not understand what they are told or what they should do. See OBIX for further documentation.
--- NOTE | 2024-09-14 17:09 | PC.NURSE ---
Introductions were made, then consulted with patient to assess needs related to . Discussed with mother her?plans to feed?her and the?experience so far. Infant is currently in level 2 nursery on CPAP. Breast pump provided due to in level 2 nursery. Instructions given on cleaning, care, usage, that there should be no pain, pumping schedule for milk production, collection, and storage of human milk. Patient was assessed for correct placement, flange size, to pump for comfort and nipple stretching/stimulation for adequate milk production every 3 hours (8 times in 24 hours) 1-2 times at night. Parents are encouraged to record the pumping schedule on the feeding sheet.?Mother voiced understanding of the education shared along with mom/baby guide and the pump measurement, flange fit handout for additional resource information. Resources provided for inpatient and outpatient services with the feeding sheet, mom/baby guide and name written on the communication board. Mother voiced understanding of information and will call if there is a request for assistance. Reported to the Primary RN.
[2024-09-14] MEDS: DOCUSATE SODIUM 100 MG CAPSULE PO (17:54)
[2024-09-14] MEDS: ACETAMINOPHEN 325 MG TABLET 650 MG PO (17:55)
[2024-09-14] MEDS: SIMETHICONE 80 MG TAB.CHEW PO (17:55)
[2024-09-14] MEDS: KETOROLAC 15 MG/ML VIAL (*BKC) IV PUSH (17:56)
[2024-09-14] MEDS: LIDOCAINE 5% PATCH 1 PATCH TRANSDERM (17:57)
[2024-09-14] MEDS: DEXTROSE 5%/0.45% SOD CHL 1,000 ML 125 ML IV CONT (19:45)
--- NOTE | 2024-09-14 19:58 | PC.NURSE ---
[facility] transport team at bedside with infant to let pt and fob visit
--- NOTE | 2024-09-14 19:59 | PC.NURSE ---
Assisted pt with pumping and pt expressed 0.8 mL of breast milk- stored in syringe in fridge at this time. Discussed fob taking syringes to [facility] for .
[2024-09-15 00:05] VITALS: BP 98/50; PULSE 84; RESP 18; TEMP 36.4; O2SAT 100
[2024-09-15] MEDS: ACETAMINOPHEN 325 MG TABLET 650 MG PO ×4 (00:05→17:26)
[2024-09-15] MEDS: KETOROLAC 15 MG/ML VIAL (*BKC) IV PUSH ×3 (00:05→11:14)
[2024-09-15 04:38] LABS: Basophils Percent Auto 0.2 % (0.2-1.2); Eosinophils Absolute Auto 0.1 K/mm3 (0-0.3); Eosinophils Percent Auto 0.5 % (0-4.4); Hematocrit 36.4 % (37.0-47.0); Hemoglobin 11.9 g/dL (12.0-15.0); Lymphocytes Absolute Auto 1.05 K/mm3 (0.9-3.2); Mean Corpuscular HGB Conc 32.7 g/dl (32-36); Mean Corpuscular Hemoglobin 31.7 pg (26-34); Mean Corpuscular Volume 97.1 fl (80-100); Mean Platelet Volume 12.6 fl (7.4-10.4); Monocytes Absolute Auto 0.8 K/mm3 (0.1-0.6); Monocytes Percent Auto 8.4 % (2.6-8.5); Neutrophils Absolute Auto 7.5 K/mm3 (1.3-6.7); Neutrophils Percent Auto 78.9 % (45.5-73.1); Platelet Count Result 145 k/mm3 (150-375); Red Blood Count 3.75 M/mm3 (4.2-5.4); Red Cell Distribution Width 13.8 % (11.5-14.5); White Blood Count 9.6 K/mm3 (4.5-10.0)
[2024-09-15 07:35] VITALS: BP 102/67; PULSE 72; RESP 16; TEMP 36.8; O2SAT 96
--- NOTE | 2024-09-15 08:56 | PM.OBPNVD ---
OB - PN: Subj Subjective Date/time seen: 09/15/24 08:56 Narrative: Pain OK. Tolerating diet. Baby [facility] transferred to [facility]. Arti would like to be discharged from the hospital today if possible. OB - PN: Obj Data Labs 09/15/24 03:45 Labs: Laboratory Results - last 24 hr 09/14/24 09/15/24 10:40 03:45 WBC 9.6 RBC 3.75 L Hgb 11.9 L Hct 36.4 L MCV 97.1 MCH 31.7 MCHC 32.7 RDW 13.8 Plt Count 145 L MPV 12.6 H Immature Gran % (Auto) 1.0 H Neut % (Auto) 78.9 H Lymph % (Auto) 11.0 L Catron % (Auto) 8.4 Eos % (Auto) 0.5 Baso % (Auto) 0.2 Lymph # (Auto) 1.05 Catron # (Auto) 0.8 H Eos # (Auto) 0.1 Baso # (Auto) 0.0 Abs Immat Gran (auto) 0.10 H Absolute Neuts (auto) 7.5 H Absolute Nucleated RBC 0.000 Nucleated RBC % 0.0 HIV 1&2 Ab/P24 Ag 4thGn Negative OB - PN A/P Assessment and Plan (1) delivery delivered: Code(s): O82 - Encounter for delivery without indication Status: Acute Plan day: 1 Comments: A: POD#31 doing well. P: I am willing to discharge her today to f/u 4 weeks. We reviewed instructions and precautions in detail. Exam Narrative: AVSS ABD soft, nontender, fundus firm. Incision c/d/i. EXT nontender
[2024-09-15] MEDS: DOCUSATE SODIUM 100 MG CAPSULE PO ×2 (09:08→17:25)
[2024-09-15] MEDS: MULTIVIT/MIN/PREN/FOL AC/IRON TABLET 1 TAB PO (09:08)
[2024-09-15] MEDS: SIMETHICONE 80 MG TAB.CHEW PO ×3 (09:08→17:25)
[2024-09-15] MEDS: SERTRALINE HCL 50 MG TABLET 100 MG PO (09:09)
--- NOTE | 2024-09-15 09:14 | WPDANLDPN2 ---
Anes-Prog Note L&D Date/Time: 09/15/24 09:14 Comfortable throughout: section Neuraxial method: spinal Epidural/Spinal procedure site: clean & non-tender Neuro status: Neuro function grossly intact. Cardiovascular status: normal Respiratory status: normal Airway patency: baseline Mental status: baseline Post-Op hydration status: normal Vital Signs: Last Vital Signs Temp 36.4 C L 09/15/24 00:05 Pulse 84 09/15/24 00:05 Resp 18 09/15/24 00:05 BP 98/50 L 09/15/24 00:05 Pulse Ox 100 09/15/24 00:05 O2 Del Method Room Air 09/14/24 16:15 Pain score (VAS): 06/03 I/O: Intake & Output 09/14/24 09/15/24 09/15/24 23:59 07:59 15:59 Intake Total 1300 1550 Output Total 800 1250 Balance 500 300 Post-procedural complaints: pruritis mild, no treatment Patient feedback: Patient satisfied with anesthetic care.
--- NOTE | 2024-09-15 09:15 | WPDANLDNPN2 ---
Anes-Prog Note L&D-Neuraxial Date/Time: 09/15/24 09:15 Neuraxial medications: intrathecal PF morphine Opiod-related complaints: pruritis mild, no treatment Patient feedback: Patient satisfied with post-operative pain management.
--- NOTE | 2024-09-15 09:43 | PC.NURSE ---
Introductions were made, then checked in with patient to assess needs related to using the breast pump and how her night went. Per mother she had quite a bit of colostrum with the first few pumping sessions but then things were slowing down. CLC reassured mother that this can be normal and continue to use her breast pump consistently in order to protect her milk supply, she did have the breast pump turned to to the lowest setting, CLC showed her how to turn the suction up and to do to her comfort level. CLC name written on the communication board. Mother is going to go on a pass to see baby at [facility], encouraged her to take her pumped breast milk with her. Mother voiced understanding of information and will call if there is a request for assistance. Reported to the Primary RN.
[2024-09-15] MEDS: HYDROcodone/acetaminophen (*CRX) 5-325 MG TABLET 1 TAB PO ×2 (11:14→17:26)
--- NOTE | 2024-09-15 11:17 | PC.NURSE ---
Pt. out on pass to visit baby at [facility] at [id number] accompanied by mother. Pain medication given. IV removed. Pt. stable at time of departure.
[2024-09-15] MEDS: IBUPROFEN 600 MG TABLET PO (17:25)
[2024-09-15 17:30] VITALS: BP 98/68; PULSE 76; RESP 16; TEMP 36.4; O2SAT 99
[2024-09-15] MEDS: LIDOCAINE 5% PATCH 1 PATCH TRANSDERM (17:59)
[2024-09-15 19:30] VITALS: BP 105/61; PULSE 74; RESP 18; TEMP 36.6; O2SAT 99
[2024-09-16] MEDS: ACETAMINOPHEN 325 MG TABLET 650 MG PO ×2 (05:40)
[2024-09-16] MEDS: IBUPROFEN 600 MG TABLET PO ×2 (05:40)
[2024-09-16 07:00] VITALS: BP 108/73; PULSE 76; RESP 16; TEMP 36.9; O2SAT 99
--- NOTE | 2024-09-16 07:45 | PC.NURSE ---
Consulted with mother concerning needs and she shared her ability to independently pump without pain. Baby is in the NICU but was able to latch to the breast yesterday. Provided community resources with the Team contact information and the mom and baby guide. She declines a WIC referral. Mom states that she has two breast pumps at home and she is familiar with their use from her last delivery. Mother voiced understanding of the information shared, is confident to continue effectively pumping and her infant at home, when to call for assistance, denies any additional assistance or education at this time. Reported to the Primary RN.
[2024-09-16] MEDS: MEASLES,MUMPS,RUBELLA VACCINE 0.5 ML VIAL SUB-Q (08:25)
[2024-09-16] MEDS: MULTIVIT/MIN/PREN/FOL AC/IRON TABLET 1 TAB PO (08:25)
[2024-09-16] MEDS: SIMETHICONE 80 MG TAB.CHEW PO (08:25)
[2024-09-16] MEDS: SERTRALINE HCL 50 MG TABLET 100 MG PO (08:25)
[2024-09-16] MEDS: HYDROcodone/acetaminophen (*CRX) 5-325 MG TABLET 1 TAB PO (09:08)
[2024-09-19 09:01] VITALS: BP 122/74; PULSE 77; RESP 18; TEMP 36.8; O2SAT 100
== END 2024-09-16 09:20 | disposition home or self-care (01) | DRG 788 ==
LOC: ANHLDR 13:01 → ANHOB2 16:03
PROVIDERS: Admitting Provider Obstetrics & Gynecology; PCP Family Medicine; Visit Provider Obstetrics & Gynecology
PROC: 10D00Z1 Extraction of Products of Conception, Low, Open Approach (ICD-10-PCS; CPT 59514; principal; 2024-09-14 12:00)
DX: O34.211 Maternal care for low transverse scar from previous cesarean delivery (principal); Z37.0 Single live birth; Z3A.39 39 weeks gestation of pregnancy
CPT/HCPCS: 36415; 85025; 86703; 90710; A9270; G0432; J0690; J1885; J2270; J2371; J2405; J2590; J7120